=== PATIENT | female | born 1995 | race Caucasian/White ===

== ENCOUNTER → 2017-10-15 13:03 | Outpatient (CLI) | payer OTHER, SELFPAY | PROVIDERS: Visit Provider Orthopaedic Surgery | DX: M25.571 Pain in right ankle and joints of right foot (principal) | CPT/HCPCS: 73610 ==

== ENCOUNTER 2018-01-24 09:01 | Day surgery (SDC) | payer OTHER, SELFPAY ==
[2018-01-24 09:30] LABS: Internal QC Validated? YES +Cl - CLEAR BKGD; Pregnancy, Urine Negative Negative
[2018-01-24 09:31] VITALS: BP 126/88; PULSE 109; RESP 16; TEMP 36.1; O2SAT 100; BMI 18.3
--- NOTE | 2018-01-24 10:45 | RAD_ITS ---
STUDY: X-RAY - RIGHT ANKLE REASON FOR EXAM: Status post hardware removal. TECHNIQUE: A single fluoroscopic view of the ankle. COMPARISON: Radiographs 10/15/2017. FINDINGS: There is removal of orthopedic hardware in the distal fibula and medial malleolus without demonstrated complication. Electronically Signed: Dejon Brenner MD at 15:52 EST Tel , Service support , RAD/Ankle 2 Views
[2018-01-24] MEDS: Mupirocin Ointment 22gm Tube 1 APPLIC (11:56)
--- NOTE | 2018-01-24 12:20 | DCINST_ITS ---
Discharge Diet: No Restrictions - nwb right leg, follow up in 2 weeks, call with concerns, keep incision/splint clean and dry Discharge Activity: May Not Drive May shower in (days): 1 Ice area for (Minutes): 20 - Every hour while awake. Weight Bearing Status: Weight bearing as tolerated Keep extremity elevated above heart level: Operative Extremity Call your doctor if your incision/area has: Continuous Slow Oozing, Sudden Increased Bleeding, Increased Pain/ Swelling, Increased Redness, Foul Smelling Discharge Call your doctor if you observe: Fever of 101 or Higher, Coldness, Increased Pain, Numbness or Tingling, Change in Color, Calf discomfort Allergies/Adverse Reactions: Allergies albuterol Allergy (Verified 01/20/18 09:00) Hives carbinoxamine [From Palgic D] Allergy (Verified 01/20/18 09:00) Hives cefdinir [From Omnicef] Allergy (Verified 01/20/18 09:00) Hives chromium Allergy (Verified 01/20/18 09:00) Hives clarithromycin [From Biaxin] Allergy (Verified 01/20/18 09:00) Hives pseudoephedrine [From Palgic D] Allergy (Verified 01/20/18 09:00) Hives morphine Adverse Reaction (Verified 01/20/18 09:01) Other INCREASED HEART RATE, DECREASED OXYGEN SAT Medications to take at Discharge Omeprazole [Prilosec] 20 mg PO DAILY 11/02/16 Norethindrone-E.estradiol-Iron [Lo Loestrin Fe 1-10 Tablet] 1 ea PO DAILY cetirizine 10 mg capsule 10 mg PO QDAY 02/28/17 Calcium Carbonate/Vitamin D3 [Calcium 600-Vit D3 500 Softgel] 2 each PO DAILY 01/20/18 Fesoterodine Fumarate [Toviaz] 4 mg PO DAILY 01/24/18 Hydrocodone Bitart/Apap 5-325 [[place] 5MG-325MG] 1 - 2 tablet PO Q6H PRN PRN 5 Days #40 tablet 01/24/18 The following prescriptions were given: Hydrocodone Bitart/Apap 5-325 [[place] 5MG-325MG] 1 - 2 tablet PO Q6H PRN PRN 5 Days #40 tablet PRN Reason: Pain Primary Care Physician: [facility] Doctor,Out of [Primary Care Provider] - Test Results: Test results from this visit will be discussed in further detail at your follow- up appointment, if applicable. Please Follow Up With: Liat iVcente, DO - [phone]
--- NOTE | 2018-01-24 12:20 | PCM.OPRPT ---
Report of Operation Date of Procedure: 01/24/18 Pre-Operative Diagnosis: Painful hardware right ankle Post-Operative Diagnosis: Same Surgery/Procedure Performed:: Removal of hardware bone right ankle lateral malleolus 7 screws and a plate as well as medial malleolus 2 screws application support technician: Chandana Natarajan Type of Anesthesia:: General Anesthesiologist: Sam Hager Specimen's removed: screws and 1/3 tubular plate from ankle Estimated Blood Loss (mL): minimal Fluids Replaced: 1100cc lr Description of Procedure: Preop note Patient is a 22-year-old female with continued pain from the hardware and patient can feel the screws underneath her skin. Patient elected to proceed with removal of hardware right ankle. Risks benefits and alternatives surgery discussed with patient. Risks including but not limited to blood loss, blood clot, infection, neurovascular injury, failure procedure, loss of life and loss of limb. Patient is aware like proceed with right ankle removal of hardware. Operative note Patient seen and examined preoperative holding area. Right leg was marked. Patient brought to the operating room placed supine on the operating room table. Sign, anesthesia, antibiotics were administered. Right leg was prepped and draped in usual sterile fashion with a tourniquet around upper thigh all bony prominences well-padded SCDs placed on her contralateral limb. We used fluoroscopy to ascertain the number of screws and the plate that was going to be removed. Timeout was performed. We then marked out our incision. We then elevated the leg exsanguinated the leg and tourniquet was raised her pressure of 250 torr. We then used a 15 blade cut through the skin as the screws were palpable at the long along her previous incision dissected down with tenotomies and used a bur to clean out the inside of the screw screws were removed in their entirety as well as the plate. We then used a curette to curette the bone holes did smooth down any rough surfaces of the bone from where the plate and screw was removed and the lateral aspect. We then moved to the medial aspect. We then were able to visualize the 2 screws medially. These are previous incision dissect down tenotomies were able to palpate the screws with a freer released any bone that was inside of the screws and then remove the screws in their entirety. We then used use of fluoroscopy to ensure that we had removed all of the hardware there is nothing left there was not. We sent all the screws and the plate to micro for evaluation. The skin was then closed as she has had issues with Vicryl the past with Monocryl and a 4-0 nylon. Sterile dressings and a splint and a posterior splint was applied to the right ankle. Patient tolerated procedure well there are no comp occasions transferred to recovery room in stable condition. Postoperative note Nonweightbearing nonweightbearing right leg Discussed with family discussed postop regimen Follow-up in 2 weeks Hospital pharmacy has prescriptions This note was generated with [employer] dictation software. It may contain incorrect words, spelling, and punctuation that were not noted in checking the note before signing.
[2018-01-24 13:45] VITALS: BP 126/88; BP 129/105; PULSE 111; RESP 16; TEMP 36.1; O2SAT 100
[2018-01-24 13:52] VITALS: BP 126/88; BP 131/93; PULSE 102; RESP 16; O2SAT 100
[2018-01-24 14:00] VITALS: BP 126/88; BP 135/96; PULSE 124; RESP 16; O2SAT 100
[2018-01-24 14:19] VITALS: BP 126/88; BP 134/92; PULSE 104; RESP 18; TEMP 36.2; O2SAT 100
[2018-01-24 16:00] VITALS: BP 126/88; BP 134/91; PULSE 105; RESP 16; TEMP 36.1; O2SAT 100
--- OUTSIDE RECORDS SUMMARY | 2018-03-11 22:11 | XMS RPT_ITS ---
:1995 Author Organization OHIP Care Team Providers Name Role Phone Liat Vicente Attending Unavailable Primay Care Physicia, No Referring Unavailable Liat Vicente Attending Unavailable Lindsay Muro Attending Unavailable Primay Care Physicia, No Referring Unavailable Primay Care Physicia, No Primary Care Unavailable Liat Vicente Attending Unavailable Primay Care Physicia, No Referring Unavailable Primay Care Physicia, No Primary Care Unavailable Liat Vicente Attending Unavailable Liat Vicente Referring Unavailable Primay Care Physicia, No Primary Care Unavailable Liat Vicente Attending Unavailable Primay Care Physicia, No Referring Unavailable Liat Vicente Attending Unavailable Liat Vicente Referring Unavailable STEVEN CAMARILLO Primary Care Unavailable PEDRO LOFTON Attending Unavailable JENNY ROMERO Primary Care Unavailable SOFI LOPES Attending Unavailable JENNY ROMERO Primary Care Unavailable PROBLEMS PROBLEMS DATE TYPE CONDITION / CODE ATTENDING STATUS SOURCE 01/28/2018 Unknown Urgency of urination JN, Jesus Kitchen / R39.15(ICD-10) [facility] [address] Repository 01/28/2018 Unknown Frequency of JN, Jesus Kitchen micturition / [facility] [address] R35.0(ICD-10) Repository 01/28/2018 Unknown Urinary Frequency / JNJesus [id number]() [facility] [address] Repository 01/24/2018 Unknown G89.18 - Other acute Jesus Vicente postprocedural pain [facility] / G89.18(ICD-10) Hospital Repository 01/01/2018 Unknown Encounter for other ROLLYJesus general counseling [facility] and advice on Repository contraception / Z30.09(ICD-10) 01/01/2018 Unknown Body mass index ROLLYJesus (BMI) pediatric, [facility] less than 5th Repository percentile for age / Z68.51(ICD-10) 01/01/2018 Unknown Encounter for ROLLYJesus surveillance of [facility] contraceptive pills Repository / Z30.41(ICD-10) 01/01/2018 Unknown Annual Exam / 83() ROLLYJesus [facility] Repository 10/15/2017 Unknown M25.571 - Pain in JenJesus dover right ankle and [facility] joints of right foot Hospital / M25.571(ICD-10) Repository PROCEDURES PROCEDURES No Procedure Records FoundRESULTS RESULTS ORTHOPEDIC VISIT Observed: 02/06/2018 Status: F Source: [facility] REPORT 12:50 PM [facility] REPOSITORY [facility] [address] [place], [place] [id number] OFFICE VISIT Date of Service: 02/06/18 MR#: [id number] Acct: [id number] Name: ZACKARYHEDY G Rep #: [id number] : 1995 Provider: Liat Vicente DO Age/Sex: 22/F [place] [facility] [place]: Signed Intake Intake Visit Reasons: RIGHT ANKLE Is patient in pain?: No Allergies albuterol Allergy (Verified 01/20/18 09:00) Hives carbinoxamine [From Palgic D] Allergy (Verified 01/20/18 09:00) Hives cefdinir [From Omnicef] Allergy (Verified 01/20/18 09:00) Hives chromium Allergy (Verified 01/20/18 09:00) Hives clarithromycin [From Biaxin] Allergy (Verified 01/20/18 09:00) Hives pseudoephedrine [From Palgic D] Allergy (Verified 01/20/18 09:00) Hives morphine Adverse Reaction (Verified 01/20/18 09:01) Other Medications Omeprazole [Prilosec] 20 mg PO DAILY 11/02/16 [History Confirmed 01/24/18] Norethindrone-E.estradiol-Iron [Lo Loestrin Fe 1-10 Tablet] 1 ea PO DAILY 11/04/16 [History Confirmed 01/24/18] cetirizine 10 mg capsule 10 mg PO QDAY 02/28/17 [History Confirmed 01/24/18] Calcium Carbonate/Vitamin D3 [Calcium 600-Vit D3 500 Softgel] 2 ea PO DAILY 01/20/18 [History Confirmed 01/24/18] Fesoterodine Fumarate [Toviaz] 4 mg PO DAILY 01/24/18 [History Confirmed 01/24/18] PFSH Surgical History History of open reduction and internal fixation (ORIF) procedure (Acute) History of tonsillectomy and adenoidectomy (Inactive) Family History Mother Hypertension Bleeding disorder Melanoma Father Heart disease Social History Smoking Status: Never smoker HPI RIGHT ANKLE: Details: HEDY RAYMUNDO is a 22 year old F here today for f/u left ankle hardware removal. She has good healing noted at incision sites. No signs of infection. She has good rom, no skin irritation. Denies numbness, tingling or other associated symptoms. Denies any calf pain and is using otc nsaids prn . She has not removed her splint at all. Ortho Exam Right Wrist/Hand Skin/Wound: Yes suture/ron removed Right Ankle Skin/Wound: Yes CDI, healing well and suture/ron removed Contralateral Normal: Yes Motor: Ankle Dorsiflextion: 5, Ankle Plantar Flexion: 5, Ankle Eversion: 5, Ankle Inversion: 5, EHL: 5 Sensation: Deep Peroneal Nerve: I, Superficial Peroneal Nerve: I, Tibial Nerve: I, Sural Nerve: I, Saphenous Nerve: I Pulses: Dorsalis Pedis: 2, Posterior Tibial: 2 ANKLE: neg homans sign Assessment AND Plan Plan doing well will do PT on own no skin irritation this time from surgery yet when go home, wear boot for a month and follow up in 4 weeks with eliana wayt or sooner if issues arise Follow up in 4 weeks or sooner if pain, swelling, numbness or associated symptoms, or concerns develop. may remove boot to drive, may wash leg boot for weight bearing all other times no impact activities even in the boot- asked about cheering, etc. Coding Level of Care Code Global Post Op 02/06/18 1250 <Electronically signed by Liat Vicente DO> Date Liat Vicente DO Cosigner Signature: Date (if applicable) CC: PROGRESS NOTES Observed: 01/28/2018 Status: COMPLETED Source: [facility] 1:45 PM [facility] REPOSITORY Encounter Department: [facility] UROLOGY FRANCA HOWELL MD Progress Notes by Caren Lopes PA-C at 01/28/2018 1:45 PM Author: Clarence Jackrvice: (none)Author Type: Physician Catering Coordinator Filed: 01/28/2018 2:03 PMEncounter Date: 01/28/2018Status: Signed Mechanical Engineering Lecturer: Caren Lopes PA-C (Physician Catering Coordinator) CHIEF COMPLAINT: Chief Complaint Patient presents with -Urinary Frequency 1 year follow up Review Of Systems: - Constitutional: No fevers, weight loss or weight gain. -Eyes: No blurred vision or itching. -Cardiovascular: No chest pain or orthopnea. She denies dyspnea on exertion. -Respiratory: No shortness of breath or labored breathing. -Gastrointestinal: Denies melena or hematochezia. -All other systems were reviewed and are negative Current medications: Current Outpatient Prescriptions MedicationSigDispenseRefill -BIOTIN POTake 2 tablets by mouth. -CALCIUM CARBONATE/VITAMIN D3 (CALCIUM 500 + D PO)Take 1 tablet by mouth. -cetirizine (ZYRTEC) 10 mg tabletTake 10 mg by mouth. -fesoterodine (TOVIAZ) 4 mg 24 hr tabletTake 1 tablet by mouth daily.90 tablet0 -multivitamin (THERAGRAN) tabletTake 1 tablet by mouth daily. -norethindrone-e.estradiol-iron (LO LOESTRIN FE) 1 mg-10 mcg (24)/10 mcg (2) TabTake 1 tablet by mouth daily.84 tablet4 -omeprazole (PRILOSEC) 20 mg delayed-release capsuleTake 20 mg by mouth. No current facility-administered medications for this visit. Allergies: Allergies AllergenReactions -CefdinirHives -Cromolyn -DihydroxyacetoneOther (See Comments) Gland swelling -Griseofulvin Microsize -MorphineNausea And Vomiting Decreased O2 sats per patient -Sodium Mother states patient NOT allergic to sodium -AlbuterolPalpitations Rapid heart rate -Biaxin [Clarithromycin]Rash -CephalosporinsRash Physical Examination: -General Appearance: Well-developed, well-nourished 22 y.o. female in no acute distress. She is pleasant and cooperative. -Vital Signs: BP 107/76 Pulse 105 Ht 5' 2 (1.575 m) Wt 101 lb (45.8 kg) BMI 18.47 kg/m? -Head: Atraumatic, normocephalic. Extraocular muscles intact. -Neck: Trachea is midline. No thyromegaly. No Lymphadenopathy. -Lungs: Clear to auscultation bilaterally. -Heart: Regular rate and rhythm without rubs. -Abdomen: Soft and nontender without CVA tenderness. -Extremities: No clubbing cyanosis or edema. -Neurologic: Alert and oriented ?3. Cranial nerves II through XII are grossly intact. History Of Present Illness: Hedy Raymundo is a 22 y.o. female with OAB. She is on Toviaz 4 mg daily and has noticed that it does not seem to help as much as it used to. We will increase the dose to 8 mg daily and see how this does. She is to call with an update in 4-6 weeks and if not improved, we will plan to try something else. She has used Oxybutynin in the past without improvement. Insurance did not cover Vesicare or Trospium of note. ICD-10-CM 1.Urgency of ewncfvzrdS95.15 2.Urinary mbhwarbziQ98.0 Assessment and plan: 1. Increase Toviaz to 8 mg daily 2. Call with update in 4-6 weeks. If not better, we will change to something else. If improved, plan for yearly follow up. Caren Lopes PA-C OPERATIVE REPORT Observed: 01/27/2018 Status: F Source: [facility] 12:17 PM [facility] REPOSITORY [facility] Medical Records Department [address] [place] [address] Operative Report 01/24/18 1220 MR#: [id number] Acct: [id number] Name: HEDY RAYMUNDO Rep #: [id number] : 1995 22 From: Liat Vicente DO PCP: OUT OF TOWN DOCTOR Status: [facility] [place] [facility] [place] of Operation Date of Procedure: 01/24/18 Pre-Operative Diagnosis: Painful hardware right ankle Post-Operative Diagnosis: Same Surgery/Procedure Performed:: Removal of hardware bone right ankle lateral malleolus 7 screws and a plate as well as medial malleolus 2 screws data center solutions architect: Chandana Natarajan Type of Anesthesia:: General Anesthesiologist: Sam Hager Specimen's removed: screws and 1/3 tubular plate from ankle Estimated Blood Loss (mL): minimal Fluids Replaced: 1100cc lr Description of Procedure: Preop note Patient is a 22-year-old female with continued pain from the hardware and patient can feel the screws underneath her skin. Patient elected to proceed with removal of hardware right ankle. Risks benefits and alternatives surgery discussed with patient. Risks including but not limited to blood loss, blood clot, infection, neurovascular injury, failure procedure, loss of life and loss of limb. Patient is aware like proceed with right ankle removal of hardware. Operative note Patient seen and examined preoperative holding area. Right leg was marked. Patient brought to the operating room placed supine on the operating room table. Sign, anesthesia, antibiotics were administered. Right leg was prepped and draped in usual sterile fashion with a tourniquet around upper thigh all bony prominences well-padded SCDs placed on her contralateral limb. We used fluoroscopy to ascertain the number of screws and the plate that was going to be removed. Timeout was performed. We then marked out our incision. We then elevated the leg exsanguinated the leg and tourniquet was raised her pressure of 250 torr. We then used a 15 blade cut through the skin as the screws were palpable at the long along her previous incision dissected down with tenotomies and used a bur to clean out the inside of the screw screws were removed in their entirety as well as the plate. We then used a curette to curette the bone holes did smooth down any rough surfaces of the bone from where the plate and screw was removed and the lateral aspect. We then moved to the medial aspect. We then were able to visualize the 2 screws medially. These are previous incision dissect down tenotomies were able to palpate the screws with a freer released any bone that was inside of the screws and then remove the screws in their entirety. We then used use of fluoroscopy to ensure that we had removed all of the hardware there is nothing left there was not. We sent all the screws and the plate to micro for evaluation. The skin was then closed as she has had issues with Vicryl the past with Monocryl and a 4-0 nylon. Sterile dressings and a splint and a posterior splint was applied to the right ankle. Patient tolerated procedure well there are no comp occasions transferred to recovery room in stable condition. Postoperative note Nonweightbearing nonweightbearing right leg Discussed with family discussed postop regimen Follow-up in 2 weeks Hospital pharmacy has prescriptions This note was generated with [employer] dictation software. It may contain incorrect words, spelling, and punctuation that were not noted in checking the note before signing. 01/27/18 1217 <Electronically signed by Liat Vicente DO> Date Liat Vicente DO CC: Liat Vicente DO; OUT OF TOWN DOCTOR Signed Observed: 01/24/2018 Status: F Source: [facility] CULTURE, DEEP WOUND 1:59 PM [facility] REPOSITORY Order Date: 09/12/16 Comments: 1. PLATE AND SCREWS REMOVED FROM RIGHT ANKLE Gram Stain Test not performed Wound Culture There are no CLSI standards for interpretation of this Drug/Organism combination. ORGANISM 1: Roseomonas gilardii Amount Growth Very Rare Cult, Anaerobic No growth in 5 days. Performed By: #### M100.1500 #### [facility] [address] [place], [address] DISCHARGE INSTRUCTION Observed: 01/24/2018 Status: F Source: [place] 12:20 PM [facility] REPOSITORY [facility] Medical Records Department [address] [place] [address] Instructions for Home/Discharge Instructions 01/24/18 1220 MR#: [id number] Acct: [id number] Name: HEDY RAYMUNDO Rep #: [id number] : 1995 22 From: Liat Vicente DO PCP: OUT OF TOWN DOCTOR Status: REG SDC Discharge Diet: No Restrictions - nwb right leg, follow up in 2 weeks, call with concerns, keep incision/splint clean and dry Discharge Activity: May Not Drive May shower in (days): 1 Ice area for (Minutes): 20 - Every hour while awake. Weight Bearing Status: Weight bearing as tolerated Keep extremity elevated above heart level: Operative Extremity Call your doctor if your incision/area has: Continuous Slow Oozing, Sudden Increased Bleeding, Increased Pain/ Swelling, Increased Redness, Foul Smelling Discharge Call your doctor if you observe: Fever of 101 or Higher, Coldness, Increased Pain, Numbness or Tingling, Change in Color, Calf discomfort Allergies/Adverse Reactions: Allergies albuterol Allergy (Verified 01/20/18 09:00) Hives carbinoxamine [From Palgic D] Allergy (Verified 01/20/18 09:00) Hives cefdinir [From Omnicef] Allergy (Verified 01/20/18 09:00) Hives chromium Allergy (Verified 01/20/18 09:00) Hives clarithromycin [From Biaxin] Allergy (Verified 01/20/18 09:00) Hives pseudoephedrine [From Palgic D] Allergy (Verified 01/20/18 09:00) Hives morphine Adverse Reaction (Verified 01/20/18 09:01) Other INCREASED HEART RATE, DECREASED OXYGEN SAT Medications to take at Discharge Omeprazole [Prilosec] 20 mg PO DAILY 11/02/16 Norethindrone-E.estradiol-Iron [Lo Loestrin Fe 1-10 Tablet] 1 ea PO DAILY 11/04/16 cetirizine 10 mg capsule 10 mg PO QDAY 02/28/17 Calcium Carbonate/Vitamin D3 [Calcium 600-Vit D3 500 Softgel] 2 each PO DAILY 01/20/18 Fesoterodine Fumarate [Toviaz] 4 mg PO DAILY 01/24/18 Hydrocodone Bitart/Apap 5-325 [[place] 5MG-325MG] 1 - 2 tablet PO Q6H PRN PRN 5 Days #40 tablet 01/24/18 The following prescriptions were given: Hydrocodone Bitart/Apap 5-325 [[place] 5MG-325MG] 1 - 2 tablet PO Q6H PRN PRN 5 Days #40 tablet PRN Reason: Pain Primary Care Physician: [facility] Doctor,Out of [Primary Care Provider] - Test Results: Test results from this visit will be discussed in further detail at your follow-up appointment, if applicable. Please Follow Up With: Liat Vicente DO - [phone] 01/24/18 1220 <Electronically signed by Liat Vicente DO> Date Liat Vicente DO CC: OUT OF [facility] DOCTOR ,URINE Collected: 01/24/2018 Status: F Source: [facility] 9:19 AM [facility] REPOSITORY Order Comment: Reason for Laboratory Test PRE OP TYPE CODE TESTS RESULT OUT OF REFERENCE UNITS RANGE LAB L400.8000 Negative Normal HCGUQUAL Negative Result Comment: Very dilute urine specimens, as indicated by a low specific gravity, may not contain computer help desk representative levels of hCG. If is still suspected, a first morning urine specimen should be collected 48 hours later and tested. Performed By: #### L400.7600 #### [facility] [address] [place], [address] ANKLE 2 VIEWS Observed: 01/24/2018 Status: F Source: [facility] 3:40 AM [facility] REPOSITORY [facility] Imaging Services [address] [place] [address] Ankle 2 Views MR#: [id number] Acct: [id number] Name: HEDY RAYMUNDO Rep #: [id number] : 1995 F 22 From: Dejon Brenner MD PCP: OUT OF TOWN DOCTOR [place] [facility] Study: Ankle 2 Views Date of Exam: 01/24/18 Exam# [id number] Ordering Dr: Liat Vicente DO STUDY: X-RAY - RIGHT ANKLE REASON FOR EXAM: Status post hardware removal. TECHNIQUE: A single fluoroscopic view of the ankle. COMPARISON: Radiographs 10/15/2017. FINDINGS: There is removal of orthopedic hardware in the distal fibula and medial malleolus without demonstrated complication. Electronically Signed: Dejon Brenner MD at 15:52 EST Tel , Service support , RAD/Ankle 2 Views CC: Liat Vicente DO; OUT OF TOWN DOCTOR [employer] Professor: Signed ORTHOPEDIC VISIT Observed: 01/07/2018 Status: F Source: [facility] REPORT 10:43 AM [facility] [address] [place] [address] OFFICE VISIT Date of Service: 12/31/17 MR#: [id number] Acct: [id number] Name: HEDY RAYMUNDO Rep #: [id number] : 1995 Provider: Liat Vicente DO Age/Sex: 22/F Location[place] [facility] [place] [place] Status: Signed Intake Intake Visit Reasons: RIGHT ANKLE Is patient in pain?: Yes Allergies albuterol Allergy (Verified 12/31/17 12:44) Hives carbinoxamine [From Palgic D] Allergy (Verified 12/31/17 12:44) Hives cefdinir [From Omnicef] Allergy (Verified 12/31/17 12:44) Hives chromium Allergy (Verified 12/31/17 12:44) Hives clarithromycin [From Biaxin] Allergy (Verified 12/31/17 12:44) Hives pseudoephedrine [From Palgic D] Allergy (Verified 12/31/17 12:44) Hives Medications Omeprazole [Prilosec] 20 mg PO DAILY 11/02/16 [History Confirmed 02/28/17] Norethindrone-E.estradiol-Iron [Lo Loestrin Fe 1-10 Tablet] 1 ea PO DAILY 11/04/16 [History Confirmed 02/28/17] cetirizine 10 mg capsule 10 mg PO QDAY 02/28/17 [History Confirmed 02/28/17] fesoterodine ER 4 mg tablet,extended release 24 hr 4 mg PO QDAY 02/28/17 [History Confirmed 02/28/17] PFSH Surgical History History of open reduction and internal fixation (ORIF) procedure (Acute) History of tonsillectomy and adenoidectomy (Inactive) Family History Mother Hypertension Bleeding disorder Melanoma Father Heart disease Social History Smoking Status: Never smoker HPI RIGHT ANKLE: Details: HEDY RAYMUNDO is a 22 year old F here today for a followup on her right ankle. Patient notes htat she continues to have ankle pain. She has increased with DF and PF although her pain is always there. She denies any swelling. Patient notes that she can feel the plate over her lateral ankle. Denies numbness, tingling or other associated symptoms. She would like to discuss having the hardware removed. ROS Const Reports system reviewed and no additional complaints, except as docu Eyes Reports system reviewed and no additional complaints, except as docu ENT Reports system reviewed and no additional complaints, except as docu Card Reports system reviewed and no additional complaints, except as docu Resp Reports system reviewed and no additional complaints, except as docu GI Reports system reviewed and no additional complaints, except as docu Reports system reviewed and no additional complaints, except as docu Musc Reports joint pain Skin/Breast Reports system reviewed and no additional complaints, except as docu Neuro Yes system reviewed and no additional complaints, except as docu Psych Reports system reviewed and no additional complaints, except as docu Endo Reports system reviewed and no additional complaints, except as docu Ortho Exam Right Ankle Skin/Wound: Yes CDI Contralateral Normal: Yes Dorsiflexion 0-20: 20 degrees Plantar Flexion 0-40: 40 degrees ROM: none Pain with ROM Assessment AND Plan 1. H/O fracture of ankle Z87.81 Plan Instructed to stop her control as of today. Will need 6 wks off cheering after surgery. Reviewed the pre-operative plans with the patient. Risks and benefits of the procedure were fully explained, including but not limited to infection, neurovascular injury, continued pain, arthritis, stiffness, need for further surgery, re-injury, DVT, PE, general risks of anesthesia, and loss of limb or life. The patient understands all the risks and does wish to proceed with written consent. Follow up post op or sooner if pain, swelling, numbness or associated symptoms, or concerns develop. Coding Level of Care Code Off vis,est,level 4 Diagnoses H/O fracture of ankle Z87.81 01/07/18 1043 <Electronically signed by Liat Vicente DO> Date Liat Vicente DO Cosigner Signature: Date (if applicable) CC: PROGRESS NOTES Observed: 01/01/2018 Status: COMPLETED Source: [facility] 9:50 AM [facility] REPOSITORY Encounter Department: [facility] Progress Notes by Pedro Lofton DO at 01/01/2018 9:50 AM Author: Pedro Lofton DOService: (none)Author Type: Physician Filed: 01/03/2018 8:37 PMEncounter Date: 01/01/2018Status: Signed Mechanical Engineering Lecturer: Pedro Lofton DO (Physician) Subjective: Patient ID: Hedy Raymundo is a 22 y.o. female. Chief Complaint Patient presents with -Annual Exam Patient has never been sexually active, no complaints, refill bc HPI Review of Systems Constitutional: Negative. Eyes: Negative for visual disturbance. Gastrointestinal: Negative for abdominal pain, constipation, diarrhea, nausea and vomiting. Genitourinary: Negative for dysuria, menstrual problem, pelvic pain, vaginal bleeding, vaginal discharge and vaginal pain. Skin: Negative. Neurological: Negative for headaches. Psychiatric/Behavioral: Negative. Objective: Physical Exam Constitutional: She is oriented to person, place, and time. She appears well-developed and well-nourished. Pulmonary/Chest: Effort normal. Neurological: She is alert and oriented to person, place, and time. Skin: Skin is warm and dry. Psychiatric: She has a normal mood and affect. Her behavior is normal. Judgment and thought content normal. Vitals reviewed. Assessment and Plan: ICD-10-CM 1.General counseling for prescription of oral qrkkmcuyextrmdM12.09norethindrone-e.estradiol-iron (LO LOESTRIN FE) 1 mg-10 mcg (24)/10 mcg (2) Tab 2.Body mass index, pediatric, less than 5th percentile for ageZ68.51 3.Encounter for surveillance of contraceptive dybufO73.41norethindrone-e.estradiol-iron (LO LOESTRIN FE) 1 mg-10 mcg (24)/10 mcg (2) Tab All pertinent side effects, risks, benefits and precautions of suggested treatments were discussed in detail. Ms. Raymundo understands and agrees with above treatment plan. Continue oral contraceptives Discussed with pt exercise, calcium, and Vit D. ORTHOPEDIC VISIT Observed: 10/15/2017 Status: F Source: [facility] REPORT 2:56 PM [facility] REPOSITORY [facility] Orth[facility] Medicine [address] [place] [address] OFFICE VISIT Date of Service: 10/15/17 MR#: [id number] Acct: [id number] Name: HEDY RAYMUNDO Rep #: [id number] : 1995 Provider: Liat Vicente DO Age/Sex: 22/F Location: [facility] [place] [place] Status: Signed Intake Intake Visit Reasons: RIGHT ANKLE Is patient in pain?: Yes Allergies albuterol Allergy (Verified 10/15/17 12:47) Hives carbinoxamine [From Palgic D] Allergy (Verified 10/15/17 12:47) Hives cefdinir [From Omnicef] Allergy (Verified 10/15/17 12:47) Hives chromium Allergy (Verified 10/15/17 12:47) Hives clarithromycin [From Biaxin] Allergy (Verified 10/15/17 12:47) Hives pseudoephedrine [From Palgic D] Allergy (Verified 10/15/17 12:47) Hives Medications Omeprazole [Prilosec] 20 mg PO DAILY 11/02/16 [History Confirmed 02/28/17] Norethindrone-E.estradiol-Iron [Lo Loestrin Fe 1-10 Tablet] 1 ea PO DAILY 11/04/16 [History Confirmed 02/28/17] cetirizine 10 mg capsule 10 mg PO QDAY 02/28/17 [History Confirmed 02/28/17] fesoterodine ER 4 mg tablet,extended release 24 hr 4 mg PO QDAY 02/28/17 [History Confirmed 02/28/17] PFSH Surgical History History of open reduction and internal fixation (ORIF) procedure (Acute) History of tonsillectomy and adenoidectomy (Inactive) Family History Mother Hypertension Bleeding disorder Melanoma Father Heart disease Social History Smoking Status: Never smoker HPI RIGHT ANKLE: Details: HEDY RAYMUNDO is a 22 year old F here today for continued right ankle pain. She is s/p right ankle ORIF dos 11/14/16. Patient notes that she has pain over her medial and lateral ankle. Patient has increased pain with activities. She notes that she has decreased her activities due to the pain. She denies any swelling. Patient denies any ankle bracing. She completed physical therapy following her surgery. patient states she can feel screws and she wants them out . Denies numbness, tingling or other associated symptoms. She denies any recent xrays. ROS Const Reports system reviewed and no additional complaints, except as docu Eyes Reports system reviewed and no additional complaints, except as docu ENT Reports system reviewed and no additional complaints, except as docu Card Reports system reviewed and no additional complaints, except as docu Resp Reports system reviewed and no additional complaints, except as docu GI Reports system reviewed and no additional complaints, except as docu Reports system reviewed and no additional complaints, except as docu Musc Reports joint pain Skin/Breast Reports system reviewed and no additional complaints, except as docu Neuro Yes system reviewed and no additional complaints, except as docu Psych Reports system reviewed and no additional complaints, except as docu Endo Reports system reviewed and no additional complaints, except as docu Assessment AND Plan 1. H/O fracture of ankle Z87.81 Plan X-rays were reviewed. There is good alignment of hardware. She would like to have the hardware removed in January. Completed save the date today and will have her return within the 30 day window for consent. There is a visible screw in the lateral incision Follow up in december or sooner if pain, swelling, numbness or associated symptoms, or concerns develop. All questions answered. Patient in agreement of plan. Plan Detail Other Orders Orders: Coding Level of Care Code Off vis,est,level 3 Diagnoses H/O fracture of ankle Z87.81 10/15/17 1456 <Electronically signed by Liat Vicente DO> Date Liat Vicente DO Cosigner Signature: Date (if applicable) CC: ANKLE MIN 3 VIEWS Observed: 10/15/2017 Status: F Source: [place] 1:06 PM [facility] REPOSITORY [facility] Imaging Services [address] [place] [address] Ankle min 3 Views MR#: [id number] Acct: [id number] Name: HEDY RAYMUNDO Rep #: [id number] : 1995 F 22 From: Dejon Brenner MD PCP: Care Physician, No Primary Status: REG CLI Study: Ankle min 3 Views Date of Exam: 10/15/17 Exam# [id number] Ordering Dr: Liat Vicente DO STUDY: X-RAY - RIGHT ANKLE REASON FOR EXAM: Preop hardware removal. TECHNIQUE: 3 view(s) of the ankle. COMPARISON: Radiographs 02/28/2017. FINDINGS: There is intact orthopedic hardware transfixing the distal fibula and medial malleolus without demonstrated residual fracture line. Normal tibiotalar articulation and ankle mortise. Normal visualized talus and calcaneus. The visualized subtalar, talonavicular, calcaneocuboid and tarsal articulations are normal. The soft tissue structures are unremarkable. RAD/Ankle min 3 Views IMPRESSION: No interval change of postoperative right ankle. Electronically Signed: Dejon Brenner MD at 10:10 EDT Tel , Service support , CC: No Primary Care Physician; Liat Vicente DO [employer] Professor: Signed ALLERGIES ALLERGIES DATE TYPE / NAME / CODE REACTION SEVERITY SOURCE CODE 01/28/2018 DRUG MORPHINE N\T\V [address] [id number]( Repository SNOMED CT) 01/20/2018 Drug chromium/[id number](R Hives Unknown [place] Allergy/4 XNORM) [facility] [id number][facility] 01/20/2018 Drug morphine/[id number](R Other Unknown [place] Allergy/4 XNORM) [facility] 12200900( [facility] Repository CT) 01/20/2018 Drug albuterol/[id number]( Hives Unknown [place] Allergy/4 RXNORM) [facility] 48844475( [facility] Repository CT) 01/20/2018 Drug pseudoephedrine/F0060 Hives Unknown [place] Allergy/4 48730(RXNORM) [facility] 76285400( [facility] Repository CT) 01/20/2018 Drug clarithromycin/Z57720 Hives Unknown [place] Allergy/4 3608(RXNORM) [facility] 64520505( [facility] Repository CT) 01/20/2018 Drug carbinoxamine/C948482 Hives Unknown [place] Allergy/4 790(RXNORM) [facility] 47750310( [facility] Repository CT) 01/20/2018 Drug cefdinir/[id number](R Hives Unknown [place] Allergy/4 XNORM) [facility] 38398538( [facility] CT) 04/05/2016 DRUG CEFDINIR Hives [place] INGREDI/4 [facility] 44097636( Repository SNOMED CT) 04/05/2016 DRUG CROMOLYN [place] INGREDI/4 [facility] 30710406( Repository SNOMED CT) 04/05/2016 DRUG DIHYDROXYACETONE Other [place] INGREDI/4 [facility] 37689531( Repository SNOMED CT) 04/05/2016 DRUG/4195 GRISEOFULVIN [place] [address]([facility]) Repository 04/05/2016 DRUG SODIUM [place] INGREDI/4 [facility] 28370161( Repository SNOMED CT) 04/05/2016 DRUG ALBUTEROL Palpitations Low [place] INGREDI/4 [facility] 00701697( Repository SNOMED CT) 04/05/2016 DRUG CLARITHROMYCIN Rash Low [place] INGREDI/4 [facility] 09216633( Repository SNOMED CT) 04/05/2016 Drug CEPHALOSPORINS Rash Low [place] Class/419 [facility] 234590(SN Repository OMED CT) ENCOUNTERS ENCOUNTERS ADMIT/DISCHARGE ACCOUNT ADMITTING ENCOUNTER LOCATION SOURCE NUMBER CLASS 02/06/2018/02/07/20 [id number] Ambulatory BMSBuilding:B [place] [address] [facility] Repository 01/28/2018/01/29/20 [id number] Ambulatory Building:[address] Repository 01/24/2018/01/25/20 [id number] Ambulatory BMSBuilding:B [place] [address] [place] Repository 01/24/2018/01/25/20 [id number] Ambulatory [address] ing:SDCRoom: Repository AC12 01/01/2018/01/02/20 [id number] Ambulatory Building:[facility] Repository 12/31/2017/01/01/20 [id number] Ambulatory BMSBuilding:B [place] [address] [facility] Repository 10/15/2017 [id number] Ambulatory [facility] ing:HPRAD Repository 10/15/2017/10/16/19 [id number] Ambulatory BMSBuilding:[facility] [place] [facility] Repository 03/17/2017/03/17/19 [id number] Ambulatory BMSBuilding:[facility] [place] [address] [facility] Repository PAYERS PAYERS ENCOUNTER GUARANTOR PAYER SUBSCRIBER SOURCE 02/06/2018 HEDY Montes Primary ISAEL [place] [id number] [facility] [place] [id number] [id number] Number: Repository [id number]: [phone] [id number] [phone] (HP) Date:7592-54-42[address]XXFXTK, [place] [address]US: 02/06/2018 Secondary NOT GIVENUNK [place] Insurance:SELF PAY [facility] Number: Effective Repository Date:2018-02-05 01/28/[address] [facility] REEDSTROMDOB: Insurance:[place] [facility] [id number] [facility] [id number] Repository EXTON Number: [place], [place] [id number] [address]Uys: ([phone]) Date: [phone] (HP) 01/24/2018 HEDY G Primary ISAEL [place] [id number] [facility] [address] [id number], [place] Number: Repository [address]Zil: [phone] [id number] [phone] (HP) Date:3827-47-40GN [address]ZK, [place] [address]GY: 01/24/2018 Secondary NOT GIVENUNK [place] Insurance:SELF PAY [facility] Number: Effective Repository Date:2018-01-24 01/24/2018 HEDY G Primary ISAEL [place] [id number] Insurance:[facility] [address] [id number], [place] Number: Repository [id number]: [phone] [id number] [phone] (HP) Date:6891-19-13RX [address]AGEJKDU, [place] [address]PX: 01/24/2018 Secondary NOT GIVENUNK [place] Insurance:SELF PAY [facility] Number: Effective Repository Date:2018-01-08 [facility]/01/[facility] Insurance:[facility]: Network [id number] [facility] [id number] Repository EXTON Number: [place], [place] [id number] [place] [address]Iqq: (104) Date: [phone] (HP) 12/31/2017 [facility] [place] [id number] Insurance[facility]ITALB: [address] [id number], [place] Number: Repository [address]Nlq: [phone] [id number] [phone] (HP) Date:9719-67-10[address]TFCJRDE, [place] [address]JU: 12/31/2017 Secondary NOT GIVENUNK [place] Insurance:SELF PAY [facility] Number: Effective Repository Date:2017-12-31 10/15/2017 [facility] [place] [id number] Insurance:[facility] REEDSTROMDOB: [place] [id number] [id number], [place] Number: Repository [id number]: [phone] [id number] [phone] (HP) Date:8345-65-97[address], [place] [address]VC: 10/15/2017 Secondary NOT GIVENUNK [place] Insurance:SELF PAY [facility] Number: Effective Repository Date:2017-10-15 10/15/2017 [facility] [place] [id number] Insurance:UNITED TH REEDSTROMDOB: [place] [id number] [id number], [place] Number: Repository [id number]: [phone] [id number] [phone] (HP) Date:8350-65-58[address], [place] [address]IB: 10/15/2017 Secondary NOT GIVENUNK [place] Insurance:SELF PAY [facility] Number: Effective Repository Date:2017-10-15 03/17/2017 HEDY Primary ISAEL [id number] Insurance:[facility] [address]Kfyouz [id number], [place] Number: Repository [id number]: [phone] [id number] [phone] () Date:4627-50-95AF [address]CELMFDW, [place] [address]YZ: 03/17/2017 Secondary NOT GIVENUNK [place] Insurance:SELF PAY [facility] Number: Effective Repository Date:2017-03-17
== END 2018-01-24 16:04 | disposition home or self-care (01) ==
LOC: SDC 09:02 → AC 09:08
PROVIDERS: Anesthesiology; Referring Provider Orthopaedic Surgery; Visit Provider Orthopaedic Surgery
PROC: (CPT 27704; principal; 2018-01-24 10:30)
DX: T84.84XA Pain due to internal orthopedic prosthetic devices, implants and grafts, initial encounter (principal); Y83.1 Surgical operation with implant of artificial internal device as the cause of abnormal reaction of the patient, or of later complication, without mention of misadventure at the time of the procedure; M25.571 Pain in right ankle and joints of right foot; R35.0 Frequency of micturition; K21.9 Gastro-esophageal reflux disease without esophagitis; Z87.81 Personal history of (healed) traumatic fracture; Z79.899 Other long term (current) drug therapy; Z79.3 Long term (current) use of hormonal contraceptives
CPT/HCPCS: 01480; 27704; 73600; 76000; 81025; 87070; 87075; 87077; 87205; J7120; J2405

== ENCOUNTER → 2018-09-29 13:20 | Outpatient (CLI) | payer BC, SELFPAY ==
[2018-09-29 08:39] VITALS: BMI 18.3
[2018-09-29 14:53] LABS: Bacteria 0 SEEN /hpf (None Seen); Mucous, Urine 0 SEEN /hpf (<or=2+); Red Blood Cells-Urine 0 SEEN /hpf (0-5)
[2018-09-29 15:18] LABS: Color, Urine Straw (Yellow); Glucose, Dipstick Normal (Normal); Ketone-Dipstick Negative (Negative); Leukocyte Esterase-Dipstick 25 /ul (Negative); Nitrite-Dipstick Negative (Negative); Occult Blood-Urine 10 /ul (Negative); Protein-Dipstick Negative (Negative); Specific Gravity, Urine 1.005 (1.002-1.030); Urine Bilirubin Dipstick Negative (Negative); Urine Clarity Clear (Clear); Urine Urobilinogen Normal (Normal)
[2018-09-29 15:35] LABS: Squamous Epithelial Cells - UA 0-5 SEEN /hpf (5-10); Transitional Epithelial - Ur 0-5 SEEN /hpf (0-5); White Blood Cells 0-5 SEEN /hpf (0-5)
== END ==
PROVIDERS: Referring Provider Physician Assistant Surgical; Visit Provider Physician Assistant Surgical
DX: M54.5 Low back pain (principal)
CPT/HCPCS: 81001; 87086

== ENCOUNTER → 2019-04-17 12:06 | Outpatient (CLI) | payer BC, SELFPAY ==
[2019-04-17 12:06] VITALS: BMI 18.3
--- NOTE | 2019-04-17 12:08 | RAD_ITS ---
STUDY: X-RAY - RIGHT ANKLE REASON FOR EXAM: Right ankle pain after rolling the ankle, prior surgery. TECHNIQUE: 3 view(s) of the ankle. COMPARISON: Radiographs 10/15/2017. FINDINGS: There is chronic healed fracture deformity of the distal fibula and medial malleolus with intramedullary scarring from previous orthopedic hardware. Normal medial and lateral malleoli. Normal tibiotalar articulation and ankle mortise. Normal visualized talus and calcaneus. The visualized subtalar, talonavicular, calcaneocuboid and tarsal articulations are normal. The soft tissue structures are unremarkable. RAD/Ankle min 3 Views IMPRESSION: Chronic healed fracture deformity without demonstrated recent fracture. Electronically Signed: Dejon Brenner MD at 13:01 EST Tel , Service support ,
== END ==
PROVIDERS: Referring Provider Physician Assistant Surgical; Visit Provider Physician Assistant Surgical
DX: S96.911A Strain of unspecified muscle and tendon at ankle and foot level, right foot, initial encounter (principal); X58.XXXA Exposure to other specified factors, initial encounter; Y93.9 Activity, unspecified; Y92.9 Unspecified place or not applicable; Y99.9 Unspecified external cause status
CPT/HCPCS: 73610